=== PATIENT | male | born 1970 | race Caucasian/White ===

== ENCOUNTER 2017-07-26 22:30 | Emergency (ER) | payer OTHER ==
[~2017-07-26] VITALS: Ht 175.3 cm; Wt 77.1 kg
--- NOTE | 2017-07-26 22:38 | NUR ---
CALLED FOR TRIAGE; NOT IN LOBBY
--- NOTE | 2017-07-26 22:50 | NUR ---
CALLED AGAIN; NO ANSWER
[2017-07-26 23:04] VITALS: BP 107/68
[2017-07-26] MEDS ORDERED: LIDOCAINE 1%-EPI 1:100,000 50 ML VIAL IJ ONE (23:15)
[2017-07-26] MEDS ORDERED: LIDOCAINE 1%-EPI 1:100,000 20 ML VIAL TP ONE (23:30)
== END 2017-07-26 23:35 | disposition home or self-care (01) ==
LOC: ER 22:34
DX: S01.01XA Laceration without foreign body of scalp, initial encounter (principal); W45.8XXA Other foreign body or object entering through skin, initial encounter; Y93.67 Activity, basketball; Y92.89 Other specified places as the place of occurrence of the external cause; Y99.8 Other external cause status
CPT/HCPCS: A4606; A6402; J3490; Z7610